=== PATIENT | male | born 1975 | race Caucasian/White ===

== ENCOUNTER → 2019-11-20 15:33 | Outpatient (CLI) | payer BC, SELFPAY ==
--- NOTE | ~2019-11-20 | XR_ITS ---
EXAMINATION: XR tibia fibula RT 2V DATE: 11/20/2019 16:13 INDICATION: Right simpson pain. TECHNIQUE: 2 views of right tibia and fibula were obtained. COMPARISON: None. FINDINGS: Bone alignment is normal. No fracture. Joint spaces are well maintained. IMPRESSION: 1. Normal right tibia and fibula. Reviewed, dictated and finalized at location A.
--- NOTE | ~2019-11-20 | XR_ITS ---
EXAMINATION: XR chest 2V EXAM DATE: 11/20/2019 16:13 INDICATION: Former smoker. TECHNIQUE: Frontal and lateral projections of the chest obtained and reviewed. Comparison is made to prior examination from 09/05/2016. FINDINGS: The lungs are clear. There are no pleural effusions. The cardiomediastinal silhouette is within normal limits. There is no pneumothorax suspected. The bones and soft tissues are unremarkab le. IMPRESSION: Unremarkable chest x-ray exam. Reviewed, dictated and finalized at location B.
== END ==
PROVIDERS: PCP Emergency Medicine; Visit Provider Emergency Medicine
DX: M79.661 Pain in right lower leg (principal)
CPT/HCPCS: 71046; 73590

== ENCOUNTER → 2020-01-16 11:42 | Outpatient (CLI) | payer BC, SELFPAY ==
--- NOTE | ~2020-01-16 | XR_ITS ---
XR lumbar spine 2-3V DATE: 01/16/2020 11:57 INDICATION: Low back pain TECHNIQUE: AP, lateral, coned lateral lumbosacral views COMPARISON: None FINDINGS: There is a transitional lumbosacral vertebra with sacralization on the left, lumbarization on the right. There is grade 1 anterolisthesis and moderately severe degenerative disc disease at L5-S1. Consider o blique views of the lumbar spine for evaluation of possible L5 pars interarticularis defects. Diffuse osteopenia. There is mild levoscoliosis of the thoracic and lumbar spine. No fracture or bone destruction is evident. The included lower thoracic and lumbar pedicles are intac t. The sacroiliac joints appear normal. IMPRESSION: Transitional lumbosacral vertebra Grade 1 anterolisthesis and moderately severe degenerative disc disease at L5-S1. L5 pars interarticu neisha defects are suspected; consider oblique views of the lumbar spine Reviewed, dictated and finalized at location A. IMPRESSION: Transitional lumbosacral vertebra Grade 1 anterolisthesis and moderately severe degenerative disc disease at L5-S 1. L5 pars interarticularis defects are suspected; consider oblique views of th e lumbar spine
== END ==
PROVIDERS: PCP Emergency Medicine; Visit Provider Emergency Medicine
DX: M54.5 Low back pain (principal); M43.17 Spondylolisthesis, lumbosacral region
CPT/HCPCS: 72100

== ENCOUNTER → 2020-04-12 10:26 | Outpatient (CLI) | payer BC, SELFPAY ==
--- NOTE | ~2020-04-12 | XR_ITS ---
XR ankle LT min 3V DATE: 04/12/2020 10:47 INDICATION: Ankle and foot pain, hallux valgus TECHNIQUE: 3 views COMPARISON: None FINDINGS: Mild plantar calcaneal enthesopathy. No fracture or dislocation of the ankle or disruption of the ankle mortise. No periosteal reaction or bone destruction. IMPRESSION: Mild plantar calcaneal enthesopathy Reviewed, dictated and finalized at location B.
--- NOTE | ~2020-04-12 | XR_ITS ---
XR foot RT min 3V DATE: 04/12/2020 10:46 INDICATION: Hallux valgus TECHNIQUE: 3 views COMPARISON: None FINDINGS: There is mild to moderate osteoarthritis at the first metatarsophalangeal joint. No fracture, dislocation, periosteal reaction or bone destruction is detected. IMPRESSION: Mild to moderate osteoarthritis at the first metatarsophalangeal joint Reviewed, dictated and finalized at location B. IMPRESSION: Mild to moderate osteoarthritis at the first metatarsophalangeal serina int
--- NOTE | ~2020-04-12 | XR_ITS ---
XR foot LT min 3V DATE: 04/12/2020 10:46 INDICATION: Hallux valgus TECHNIQUE: 3 views COMPARISON: None FINDINGS: There is severe osteoarthritis including prominent hypertrophic spurring at the first metat arsophalangeal joint. There is osteoarthritis at the tibiotalar joint. There is mild plantar calcaneal enthesopathy. No fracture, dislocation, periosteal reaction or bone destruction. IMPRESSION: Polyarticular osteoarthritis Mild plantar calcaneal enthesopathy Reviewed, dictated and finalized at location B.
--- NOTE | ~2020-04-12 | XR_ITS ---
XR ankle RT min 3V DATE: 04/12/2020 10:47 INDICATION: Ankle and foot pain. Hallux valgus. TECHNIQUE: 3 views COMPARISON: None FINDINGS: No fracture or dislocation of the ankle or disruption of the ankle mortise. No periosteal r eaction or bone destruction. There is a slight plantar calcaneal enthesopathy. No periostitis or eros jaylin change. Mild osteoarthritis noted at the tibiotalar joint and first metatarsophalangeal joint. IMPRESSION: Slight plantar calcaneal enthesopathy Mild osteoarthritis Reviewed, dictated and finalized at location B.
== END ==
DX: M77.32 Calcaneal spur, left foot (principal); M17.11 Unilateral primary osteoarthritis, right knee
CPT/HCPCS: 73610; 73630

== ENCOUNTER → 2020-10-07 11:39 | Outpatient (CLI) | payer BC, SELFPAY ==
--- NOTE | ~2020-10-07 | XR_ITS ---
EXAMINATION: XR knee RT min 4V DATE: 10/07/2020 12:14 INDICATION: Right knee pain. TECHNIQUE: 4 views of right knee were obtained. COMPARISON: Right tibia and fibula radiographs 11/20/2019 FINDINGS: Bone alignment is normal. No fracture. There is mild tricompartmental osteoarthritis charac terized by tiny marginal osteophytes. No knee joint effusion. IMPRESSION: 1. Mild right knee osteoarthritis. Reviewed, dictated and finalized at location A. 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
--- NOTE | ~2020-10-07 | XR_ITS ---
EXAMINATION: XR knee LT min 4V DATE: 10/07/2020 12:14 INDICATION: Left knee pain. TECHNIQUE: 4 views of left knee were obtained. COMPARISON: None. FINDINGS: Bone alignment is normal. No fracture. There is mild osteoarthritis of medial and patellofe moral compartments characterized by tiny marginal osteophytes. No knee joint effusion. IMPRESSION: 1. Mild left knee osteoarthritis. Reviewed, dictated and finalized at location A. 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
== END ==
PROVIDERS: PCP Emergency Medicine; Visit Provider Emergency Medicine
DX: M17.0 Bilateral primary osteoarthritis of knee (principal)
CPT/HCPCS: 73564

== ENCOUNTER → 2024-09-05 08:57 | Outpatient (CLI) | payer BC, SELFPAY ==
--- NOTE | ~2024-09-05 | XR_ITS ---
EXAMINATION: XR shoulder LT min 2V DATE: 09/05/2024 09:17 INDICATION: Anterior left shoulder pain post fall TECHNIQUE: AP internally and externally rotated, AP oblique externally rotated and transscapular Y vi ews of the left shoulder were obtained. COMPARISON: None FINDINGS: Normal alignment. No fracture.Mild left glenohumeral and acromioclavicular osteoarthritis. Visualize d portion of the lungs are clear. Soft tissues are unremarkable. IMPRESSION: Left glenohumeral and acromioclavicular osteoarthritis. Reviewed, dictated and finalized at location B. K PAVER
== END ==
LOC: EXPCRAD 09:00
PROVIDERS: PCP Emergency Medicine; Visit Provider Emergency Medicine
DX: M19.012 Primary osteoarthritis, left shoulder (principal)
CPT/HCPCS: 73030